=== PATIENT | male | born 1950 | race Hispanic/Latino ===

== ENCOUNTER 2020-08-14 12:56 | Emergency (ER) | payer OTHER ==
[2020-08-14 13:27] LABS: BASOPHILS % (AUTO) 0.5 % (0.0-5.0); EOSINOPHILS % (AUTO) 2.5 % (0.0-8.0); HEMATOCRIT 42.9 % (42-54); LYMPHOCYTES % (AUTO) 8.5 % (21.0-51.0); MEAN CORPUSCULAR HEMOGLOBIN 28.4 pg (27.0-33.0); MEAN CORPUSCULAR HGB CONC 32.9 g/dL (32.0-36.0); MEAN CORPUSCULAR VOLUME 86.5 fL (79-99); MONOCYTES % (AUTO) 10.8 % (3.0-13.0); NEUTROPHILS % (AUTO) 77.2 % (40.0-77.0); PLATELET COUNT (AUTO) 164 K/uL (130-400); RED BLOOD CELL COUNT(AUTO) 4.96 MIL/uL (4.50-6.20); RED CELL DISTRIBUTION WIDTH 13.5 % (11.0-15.5)
[2020-08-14 13:36] LABS: CREATININE 0.9 mg/dL (0.5-1.5); POTASSIUM 4.2 mmol/L (3.5-5.1)
[2020-08-14 13:39] LABS: ALBUMIN 3.6 g/dL (3.5-5.0); BILIRUBIN,TOTAL 0.3 mg/dL (0.2-1.0)
[2020-08-14] MEDS ORDERED: ONDANSETRON HCL 4 MG/2 ML VIAL ONE (13:43)
[2020-08-14] MEDS ORDERED: MORPHINE SULFATE 4 MG/1ML SYG ONE (13:43)
[2020-08-14] MEDS ORDERED: PANTOPRAZOLE 40 MG/VIAL ONE (13:43)
[2020-08-14] MEDS ORDERED: IOHEXOL-350 75 ML VIAL IV ONE (14:06)
[2020-08-14] MEDS ORDERED: LIDOCAINE HCL 2% VISCOUS 15 ML UDCUP ONE (14:50)
[2020-08-14] MEDS ORDERED: ACETAMINOPHEN 325 MG TAB ONE (14:50)
[2020-08-14] MEDS ORDERED: MAG HYDROX/AL HYDROX/SIMETH ES 30 ML SUSP UDCUP ONE (14:50)
[2020-08-14 16:39] LABS: APPEARANCE,URINE Clear (CLEAR); BILIRUBIN,URINE Negative (NEGATIVE); COLOR,URINE Yellow (YELLOW); GLUCOSE, URINE (UA) Negative (NEGATIVE); KETONES,URINE Trace mg/dL (NEGATIVE); LEUKOCYTE ESTERASE ,URINE Negative (NEGATIVE); NITRATE,URINE Negative (NEGATIVE); OCCULT BLOOD,URINE Negative (NEGATIVE); PH,URINE 7.5 (5.0-8.0); PROTEIN,URINE Negative (NEGATIVE); UROBILINOGEN,URINE 0.2 mg/dL (0.2-1.0)
== END 2020-08-14 17:58 | disposition home or self-care (01) ==
LOC: EDH 12:56
DX: A09 Infectious gastroenteritis and colitis, unspecified (principal); K29.60 Other gastritis without bleeding
CPT/HCPCS: 36415; 74177; 76705; 80053; 81003; 82150; 83605; 83690; 84484; 85025; 87040 ×2; 93005; 96374; 96375; 99285; C9113; J2270; J2405; Q9967

== ENCOUNTER 2025-05-17 22:42 | Emergency (ER) | payer SELFPAY ==
[~2025-05-17] VITALS: Ht 157.5 cm; Wt 49.9 kg
[2025-05-17 23:50] LABS: APPEARANCE,URINE CLEAR (CLEAR); GLUCOSE, URINE (UA) NEGATIVE (NEGATIVE); LEUKOCYTE ESTERASE ,URINE 25 Leu/uL (NEGATIVE); NITRATE,URINE NEGATIVE (NEGATIVE); OCCULT BLOOD,URINE NEGATIVE (NEGATIVE)
[2025-05-17 23:52] LABS: ADD UA MICROSCOPIC YES
[2025-05-17 23:57] LABS: SQUAMOUS EPITHELIAL CELL,UR RARE /HPF (0-2)
[2025-05-18 00:38] LABS: IMMATURE GRANULOCYTE ABSOLUTE 0.03 K/uL (0-1); NUCLEATED RED BLOOD CELLS 0.0 % (0.0-0.19); PLATELET COUNT (AUTO) 149 K/uL (130-400); RED BLOOD CELL COUNT(AUTO) 4.37 MIL/uL (4.50-6.20); RED CELL DISTRIBUTION WIDTH 12.4 % (11.0-15.5); WHITE BLOOD COUNT (AUTO) 8.5 K/uL (4.8-10.8)
[2025-05-18 00:40] LABS: CREATININE 0.8 mg/dL (0.5-1.3); GLOMERULAR FILTR. RATE CALC 93.0 mL/min (>90); GLUCOSE,RANDOM 142.0 mg/dL (70-105); SODIUM SERUM 137.0 mmol/L (136-145); UREA NITROGEN, BLOOD 12.0 mg/dL (7-18)
--- NOTE | 2025-05-18 02:04 | ERN ---
General Chief Complaint: Lower Extremity Pain/Injury Stated Complaint: LEG PAIN Time Seen by MD: 01:53 History of Present Illness Initial Comments 74-year-old male here for evaluation of lower extremity pain. Patient was picked up from a local gas station by police and brought here to the emergency room for evaluation. Patient states that he has pain all over and would like some pain medications. No numbness or tingling. No fever no cough no shortness a breath. No chest pain or palpitations. Allergies: Coded Allergies: No Known Drug Allergies (Unverified Allergy, Unknown, 05/17/25) Past Medical History Past Medical History: No Pertinent History Past Surgical History: None Musculoskeletal: (+) muscle pain Review of Systems: was completed, & the rest were negative. Physical Exam General Appearance: (+) no apparent distress, (+) other documentation (Unkempt appearing) Orientation: (+) alert, (+) oriented x 3 Eye: bilateral eye normal inspection, bilateral eye PERRL, bilateral eye EOMI Ear, Nose, Throat: (+) hearing grossly normal, (+) normal ENT inspection, (+) moist mucous membraine Neck: (+) normal inspection Respiratory: (+) chest non-tender, (+) lungs clear; (-) decreased breath sounds Heart: (+) regular; (-) murmur Vascular: (+) no edema Gastrointestinal: (+) soft, (+) non-tender Extremities: (+) normal range of motion, (+) non-tender Neurologic/Psychiatric Comment uses walker Results Laboratory and Microbiology Lab and Micro Result Laboratory Tests Test 05/17/25 23:35 05/18/25 00:21 Urine Color LIGHT-YELLOW (YELLOW) Urine Appearance CLEAR (CLEAR) Urine pH 5.5 (5.0-8.0) Urine Specific [place] 1.011 (1.001-1.031) Urine Protein NEGATIVE mg/dL (NEGATIVE) Urine Glucose (UA) NEGATIVE mg/dL (NEGATIVE) Urine Ketones NEGATIVE mg/dL (NEGATIVE) Urine Occult Blood NEGATIVE (NEGATIVE) Urine Nitrate NEGATIVE (NEGATIVE) Urine Bilirubin NEGATIVE mg/dL (NEGATIVE) Urine Urobilinogen 0.2 mg/dL (0.2-1.0) Urine Leukocyte Esterase 25 Jhonathan/uL (NEGATIVE) H Urine RBC 0-1 /HPF (0-1) Urine WBC 2-5 /HPF (0-1) H Urine Squamous Epithelial Cells RARE /HPF (0-2) Urine Bacteria None /HPF (None Seen) White Blood Count 8.5 K/uL (4.8-10.8) Red Blood Count 4.37 MIL/uL (4.50-6.20) L Hemoglobin 13.1 g/dL (14.0-18.0) L Hematocrit 39.1 % (42-54) L Mean Corpuscular Volume 89.5 fL (79-99) Mean Corpuscular Hemoglobin 30.0 pg (27.0-33.0) Mean Corpuscular Hemoglobin Concent 33.5 g/dL (32.0-36.0) Red Cell Distribution Width 12.4 % (11.0-15.5) Platelet Count 149 K/uL (130-400) Mean Platelet Volume 10.6 fL (7.5-10.5) H Immature Granulocyte % (Auto) 0.4 % (0-1) Neutrophils (%) (Auto) 56.9 % (40.0-77.0) Lymphocytes (%) (Auto) 27.4 % (21.0-51.0) Monocytes (%) (Auto) 13.1 % (3.0-13.0) H Eosinophils (%) (Auto) 1.4 % (0.0-8.0) Basophils (%) (Auto) 0.8 % (0.0-5.0) Neutrophils # (Auto) 4.8 K/uL (1.8-7.7) Lymphocytes # (Auto) 2.3 K/uL (1.0-4.8) Monocytes # (Auto) 1.1 K/uL (0.1-1.0) H Eosinophils # (Auto) 0.12 K/uL (0.00-0.70) Basophils # (Auto) 0.07 K/uL (0.00-0.20) Absolute Immature Granulocyte (auto 0.03 K/uL (0-1) Nucleated Red Blood Cells 0.0 % (0.0-0.19) Sodium Level 137 mmol/L (136-145) Potassium Level 3.8 mmol/L (3.5-5.1) Chloride Level 103 mmol/L (101-111) Carbon Dioxide Level 30 mmol/L (21-32) Blood Urea Nitrogen 12 mg/dL (7-18) Creatinine 0.8 mg/dL (0.5-1.3) Glomerular Filtration Rate Calc 93 mL/min (>90) Random Glucose 142 mg/dL (70-105) H Total Calcium 8.9 mg/dL (8.5-10.1) MDM Received sign-out from Dr. Parson: 74-year-old male here for evaluation of body aches and leg pain. Labs reassuring at this time. We will provide pain management/analgesia and discharge home. ED Course Orders Procedure Category Date Status Time Urinalysis Profile LAB 05/17/25 Complete 23:31 Cbc With Differential LAB 05/18/25 Complete 00:01 Basic Metabolic Panel LAB 05/18/25 Complete 00:01 Acetaminophen 500mg PHA 05/18/25 Transmitted Tab (Tylenol 500mg T 02:00 Ketorolac PHA 05/18/25 Transmitted Tromethamine 15mg/Ml 02:00 Current Medications Medications (Trade) Dose Ordered Sig/Kamila Route PRN Reason Start Time Stop Time Status Last Admin Dose Admin Acetaminophen (TYLenol 500MG TAB) 1,000 mg ONCE ONCE PO 05/18/25 02:00 05/18/25 02:01 UNV Ketorolac Tromethamine (toRADol) 15 mg ONCE ONCE IM 05/18/25 02:00 05/18/25 02:01 UNV Vital Signs Date Time Temp Pulse Resp B/P (MAP) Pulse Ox O2 Delivery O2 Flow Rate FiO2 05/17/25 23:15 98.1 90 16 137/80 99 Room Air* 0 21 05/17/25 22:45 98.1 90 16 137/80 99 Room Air 0 DX & DISP Disposition: Discharge Departure Impression: Primary Impression: Leg pain, bilateral Condition: Stable Referrals: SELF,REFERRAL (PCP) VANCE SIEGEL MD May 18, 2025 02:04
[2025-05-18 04:03] VITALS: BP 128/76; PULSE 82; RESP 16; TEMP 98.1; O2SAT 99
== END 2025-05-18 04:50 | disposition home or self-care (01) ==
LOC: EDH 22:42
DX: M79.604 Pain in right leg (principal); M79.605 Pain in left leg; X58.XXXA Exposure to other specified factors, initial encounter; Y93.89 Activity, other specified; Y92.89 Other specified places as the place of occurrence of the external cause; Y99.8 Other external cause status
CPT/HCPCS: 99283; 80048; 85025; 81001; 36415; 96372; J1885